=== PATIENT | male | born 1995 | race Hispanic/Latino ===

== ENCOUNTER 2018-04-02 01:32 | Emergency (ER) | payer OTHER, SELFPAY ==
[2018-04-02] MEDS ORDERED: Clindamycin 150 MG CAP ONE (01:55)
[2018-04-02] MEDS ORDERED: HYDROcodone/Acetaminophen 10/325 mg Tablet ONE (01:55)
== END 2018-04-02 07:45 | disposition home or self-care (01) ==
LOC: MADERS 01:32
DX: T63.301A Toxic effect of unspecified spider venom, accidental (unintentional), initial encounter (principal); L03.113 Cellulitis of right upper limb; L03.116 Cellulitis of left lower limb; F17.210 Nicotine dependence, cigarettes, uncomplicated
CPT/HCPCS: 99282

== ENCOUNTER 2020-01-02 17:58 | Emergency (ER) | payer BC, SELFPAY ==
[2020-01-02] MEDS ORDERED: Fluorescein Opthalmic Strip ONE (18:08)
[2020-01-02] MEDS ORDERED: Tetracaine 0.5% OPHTH SOLN/PF 4 ML BOT ONE (18:08)
[2020-01-02] MEDS ORDERED: Erythromycin Base 0.5% Ophth Oint 3.5 gm Tube ONE (18:55)
[2020-01-02] MEDS ORDERED: Sulfameth/Trimethoprim DS 800-160mg TAB ONE (18:55)
== END 2020-01-02 19:08 | disposition home or self-care (01) ==
LOC: MADERS 17:58
DX: H01.00B Unspecified blepharitis left eye, upper and lower eyelids (principal); F17.210 Nicotine dependence, cigarettes, uncomplicated
CPT/HCPCS: 99282